=== PATIENT | female | born 1955 | race Asian ===

== ENCOUNTER 2016-09-10 14:05 | Emergency (ER) | payer OTHER ==
[2016-09-10 14:28] VITALS: BP 154/110; PULSE 94; TEMP 98; BMI 31.2
--- NOTE | 2016-09-10 14:38 | PDOC ---
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 She than cleansed it with water. Pt. is up-to-date with hepatitis b vaccines and tetanus. Patient reported this immediately to her pipe supervisor and started to fill out report. Pt. refusing PEP presently. 09/10/16 14:58 09/10/16 15:20 09/10/16 18:18 09/10/16 18:18 09/10/16 18:52 09/10/16 19:29 Severity: mild Exposed Location: Left: Finger(s) (index ) Assessing Significant Risk PEP: Yes Percutaneous (left index finger distal palmar aspect'), Yes Source patient is potentially HIV infected Past History - Past Medical History Allergies/Adverse Reactions: Allergies clarithromycin [From Biaxin] Allergy (Intermediate, Verified 09/10/16 14:28) Swelling erythromycin base [Erythromycin Base] Allergy (Intermediate, Verified 09/10/16 14:28) Rash Penicillins Allergy (Intermediate, Verified 09/10/16 14:28) Difficulty Breathing SHOCK Tetracyclines Allergy (Intermediate, Verified 09/10/16 14:28) Difficulty Breathing Sulfa (Sulfonamide Antibiotics) Allergy (Mild, Verified 09/10/16 14:28) Hives Home Medications: Ambulatory Orders Dexlansoprazole [Dexilant -] 60 mg PO DAILY 02/01/13 Valsartan [Diovan] 80 mg PO DAILY 02/01/13 Atorvastatin Ca [Lipitor] 20 mg NR DAILY 05/17/13 Metformin Xr [Glucophage Xr -] 500 mg PO DAILY 05/17/13 Sitagliptin Phosphate [Januvia] 50 mg PO DAILY 06/11/14 General: Yes: diabetes, high cholesterol, hypertension Surgical History: Yes: Appendectomy, - Social History Smoking Status: Never smoked General Medical PMHX - Other General PMHX Arthritis: No Review of Systems - Review of Systems Able to Perform ROS?: Yes Constitutional: No: Symptoms Reported HEENTM: No: Symptoms Reported Respiratory: No: Symptoms reported Cardiac (ROS): No: Symptoms Reported ABD/GI: No: Symptoms Reported : No: Symptoms Reported Musculoskeletal: No: Symptoms Reported Integumentary: Yes: Other (puncture wound noted left index finger distal palmar aspect) *Physical Exam - Vital Signs Last Vital Signs Temp Pulse Resp BP Pulse Ox 98.0 F 94 H 20 154/110 99 09/10/16 14:26 09/10/16 14:26 09/10/16 14:09/10/16 14:09/10/16 14:26 - Physical Exam General Appearance: Yes: Appropriately Dressed Respiratory/Chest: positive: Lungs Clear, Normal Breath Sounds Cardiovascular: positive: Regular Rhythm, Regular Rate, S1, S2 Integumentary: positive: Other (puncture wound needlepoint size left distal palmar aspect of index finger ) Neurologic: positive: Alert, Normal Response, Respond to painful stimul, Responsive Post Exposure - ED Protocol - Exposure Treatment Washing/Decontamination: Soap/Water Source Patient HIV Status:: Unknown Is PEP indicated?: Yes Prophylaxis for HIV discussed?: Yes Prophylaxis given?: No Prophylaxis refused?: Yes Drug(s) Information Sheets given:: No Baseline bloods drawn prophylaxis:(use *Exposure-Hosp Emp): Yes - Referrals Employee Referred to Employee Health:: Yes Employee Referred to Infectious Disease Specialist:: iveth Procedures - Consent Consent obtained: From Patient - Additional Procedures Progress: 09/10/16 19:52 She washed left index finger with chlorhexidine and warm water, dried bandaid applied 09/10/16 19:54 Medical Decision Making - Medical Decision Making 09/10/16 15:21 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 Patient reports that her finger bleed immediately and she squeezed it to bleed more. She than cleansed it with water. Pt. is up-to-date with hepatitis b vaccines and tetanus. Patient reported this immediately to her pipe supervisor and started to fill out report. Needlestick injury left index finger PLAN: post exposure labs drawn Dr. Flora Jameson source individual's PCP she will order source individual post exposure labs Told Dr. Jameson that nurse Pt. does not want to take PEP if source individual is HIV +, Dr. Jameson recommended that pt. nurse speak to Dr. Paige if needed Will have pt. follow with employee health and Dr. Kraft Pt. to follow up with PCP regarding elevated uric acid and elevated triglycerides Explained to pt that taken PEP within 3 hours of exposure lower risk of conversion for HIV 09/10/16 15:37 09/10/16 18:19 Laboratory Tests 09/10/16 09/10/16 09/10/16 14:52 14:52 14:52 WBC 7.0 D RBC 4.42 Hgb 13.1 Hct 39.3 MCV 89.0 MCHC 33.4 RDW 13.8 Plt Count 216 MPV 7.9 Neutrophils % 61.7 Lymphocytes % 28.1 Monocytes % 7.0 Eosinophils % 2.5 Basophils % 0.7 Sodium 141 Potassium 4.0 Chloride 104 Carbon Dioxide 30 Anion Gap 7 L BUN 16 D Creatinine 0.8 Creat Clearance w eGFR > 60 Random Glucose 107 H Uric Acid 7.5 H D Calcium 9.4 Phosphorus 3.3 Total Bilirubin 0.4 GGT 53 AST 34 D ALT 53 Alkaline Phosphatase 80 LD Total 227 Total Protein 7.7 Albumin 4.1 Triglycerides 231 H D Cholesterol 182 HIV 1&2 Antibody Screen Negative HIV P24 Antigen Negative waiting for source individual labs HIV 1 & 2 antibody screen 4th generation negative ,HIV P24 antigen negative 09/10/16 18:20 09/10/16 19:29 09/10/16 19:44 09/10/16 19:54 09/10/16 19:55 *DC/Admit/Observation/Transfer Diagnosis at time of Disposition: Employee exposure to blood - Discharge Dispostion Disposition: HOME Condition at time of disposition: Stable - Referrals Referrals: Steven Mercado MD [Primary Care Provider] - Shaquille Kraft MD [Staff Physician] - - Patient Instructions Additional Instructions: Follow up occupational health as soon as possible Follow up with Dr. Kraft as soon as possible Follow-up with your primary care provider in regards to your elevated triglycerides and uric acid Patient voiced understanding of discharge instructions and all questions were answered - Post Discharge Activity Work/School Note: Back to Work
[2016-09-10 15:22] LABS: BASOPHIL 0.7 % (0-2.0); EOSINOPHIL 2.5 % (0-4.5); MCH 29.7 pg (25.7-33.7); MCHC 33.4 g/dl (32.0-36.0); MEAN PLT VOLUME 7.9 fl (7.5-11.1); NEUTROPHILS 61.7 % (42.8-82.8); PLATELET COUNT 216 K/MM3 (134-434); RDW 13.8 % (11.6-15.6)
[2016-09-10 15:35] LABS: ALBUMIN 4.1 g/dl (3.4-5.0); ALK PHOS 80 U/L (45-117); ANION GAP 7 (8-16); BILIRUBIN,TOTAL 0.4 mg/dL (0.2-1.0); CALCIUM 9.4 mg/dL (8.5-10.1); CHOLESTEROL 182 mg/dL (50-200); CO2 30 mmol/L (21-32); COCKROFT - GAULT 86.7425; CREATININE 0.8 mg/dL (0.55-1.02); GLUCOSE,RANDOM 107 mg/dL (74-106); LDH 227 U/L (84-246); PHOSPHOROUS 3.3 mg/dL (2.5-4.9); SGOT/AST 34 U/L (15-37); SGPT/ALT 53 U/L (12-78); TOT PROT 7.7 g/dl (6.4-8.2); URIC ACID 7.5 mg/dL (2.6-7.2)
[2016-09-10 15:58] LABS: HIV 1 & 2 AB NEGATIVE; HIV 1 AGp24 NEGATIVE
[2016-09-12 08:07] LABS: HEP B SURFACE AB Reactive (.)
== END 2016-09-10 21:00 | disposition home or self-care (01) ==
LOC: JERFT 14:05
DX: S61.231A Puncture wound without foreign body of left index finger without damage to nail, initial encounter (principal); W46.1XXA Contact with contaminated hypodermic needle, initial encounter; Y93.F9 Activity, other caregiving; Y92.230 Patient room in hospital as the place of occurrence of the external cause; Y99.0 Civilian activity done for income or pay
CPT/HCPCS: 36415; 80053; 82465; 82977; 83615; 84100; 84478; 84550; 85025; 86704; 86706; 86803; 87340; 87389; 99282-25

== ENCOUNTER 2018-04-07 05:26 | Day surgery (SDC) | payer OTHER ==
[2018-04-06 11:08] VITALS: BMI 31.2
[2018-04-07] MEDS ORDERED: LIDOCAINE HCL/PF 2% SDV 5ML VIAL ONE (13:03)
[2018-04-07] MEDS ORDERED: PROPOFOL 20 ML ONE (13:04)
[2018-04-07] MEDS ORDERED: MIDAZOLAM HCL 2 MG/2 ML SINGLE DOSE VIAL ONE (13:04)
[2018-04-07] MEDS ORDERED: SCOPOLAMINE HYDROBROMIDE 1 PATCH PATCH.TD72 ONE (13:29)
[2018-04-07] MEDS ORDERED: CLINDAMYCIN PHOSPHATE 600 MG/4 ML VIAL ONE (13:48)
[2018-04-07] MEDS ORDERED: CLINDAMYCIN 600 MG PREMIX BAG IVPB ONE (13:48)
[2018-04-07] MEDS ORDERED: LIDOCAINE HCL 1%, 10 MG/ML (50 mL VIAL) IJ ONE (14:05)
[2018-04-07] MEDS ORDERED: KETOROLAC TROMETHAMINE 30 MG/1 ML VIAL ONE (14:55)
[2018-04-07] MEDS ORDERED: ONDANSETRON 4 MG/2 ML VIAL IVPUSH PRN (15:35)
[2018-04-07] MEDS ORDERED: oxyCODONE HCL 5 MG TABLET PO PRN (15:35)
--- NOTE | 2018-04-07 15:35 | HP ---
History & Physical Update - History History: No Change - Physical Physical: No Change - Assessment Assessment: No Change - Plan Plan: No Change
[2018-04-07] MEDS ORDERED: ACETAMINOPHEN 1000 MG/100 ML VIAL (NON FORMULARY) IVPB PRN (15:36)
[2018-04-07] MEDS ORDERED: ACETAMINOPHEN INJECTION 100 ML IVPB ONE (15:44)
[2018-04-07] MEDS ORDERED: LACTATED RINGERS SOLUTION 1,000 ML IV SCH (15:45)
[2018-04-07 17:54] VITALS: BP 117/69; PULSE 66; TEMP 97.7
--- NOTE | 2018-04-07 18:14 | OP ---
DATE OF OPERATION: 04/07/2018 PREOPERATIVE DIAGNOSIS: Right breast cancer. POSTOPERATIVE DIAGNOSIS: Right breast cancer. PROCEDURE: Right breast lumpectomy with primary reconstruction and sentinel lymph node biopsy as well as ultrasound-guided wire localized excision of lymph node. SURGEON: Padma Plata MD ANESTHESIA: General. ESTIMATED BLOOD LOSS: Minimal. COMPLICATIONS: None. DISPOSITION: Stable at the end of the procedure. INDICATIONS: The patient presented with a palpable mass in the upper right breast in the 12 o'clock location, 4-6 cm from the nipple, measuring approximately 3.5 cm. She had a suspicious mammogram and ultrasound. She underwent an ultrasound-guided needle biopsy, which shows the ER-ND positive invasive duct carcinoma. On ultrasound she also had a lymph node in the right axilla with a thickened cortex, but had a hyperechoic center and had no palpable clinical lymph nodes. Therefore, I elected to remove this lymph node at the time of the lumpectomy. She had a preoperative bone scan and CAT scan of the chest, abdomen, and pelvis that essentially noted no metastatic disease. There were some bilateral pulmonary nodules, which were thought to be likely benign. She would have a short-term follow up of these in 6 months. PROCEDURE IN DETAIL: The patient was brought to [facility] in [place] and was first taken to breast imaging where a wire was used to localize the right axillary lymph node that was thought to be suspicious under ultrasound guidance by Dr. Juarez, the radiologist. She was then brought to Nuclear Medicine where I injected technetium sulfur colloid as an intradermal injection in the right 12 o'clock subareolar location. She was then brought to the operating room after induction of general anesthesia and IV antibiotics. The right breast and axilla were prepped. Then 2.5 mL of methylene blue dilated with 2.5 mL of injectable saline were then injected by me into the right subareolar plexus and the breast was massaged for 5 minutes. The right breast and axilla were then prepped and draped in the usual sterile fashion. A 4-cm incision was made in the right axilla and carried down to the clavipectoral fascia. I followed the wire through to the lymph node that was pointed by the radiologist. It turned out to be the very first sentinel lymph node that was blue and hot. This was removed as a right axillary sentinel node number 1, blue and hot. There was another second radioactive lymph node that was sent as right axillary sentinel node number 2, hot, not blue, and a third sentinel node, which was hot and blue. There was no other radioactivity, blue dye, or pathological lymph nodes in the right axilla. Therefore, once hemostasis was assured, the right breast lumpectomy was performed. An ellipse of skin was taken overlying the palpable mass that was at the right breast 12 o'clock location, 4 cm from the nipple. Superior, inferomedial, and lateral flaps were raised and an en bloc lumpectomy was performed. Tagged with a long stitch lateral and short superior. Grossly I felt that it was close superiorly, medially, and inferiorly; therefore, I took additional margins medially. A new medial margin with a stitch at the old margin and a new superior margin with a stitch at the old margin and a new posterior margin with a stitch at the old margin. There was no other palpable abnormality within the lumpectomy. There was a wide defect left from this rather large lumpectomy. Therefore, the superior, medial, and lateral flaps were raised and a tissue transfer procedure was performed. The parenchyma was closed in 2 layers with interrupted 2-0 Vicryl. The skin was then approximated with interrupted 3-0 Vicryl and running 4-0 Prolene. A sterile dressing with Tegaderm was applied. The axillary incision was also then closed in a routine fashion of interrupted 3-0 Vicryl and running 4-0 Prolene. Sterile dressing with Tegaderm was applied. She tolerated the procedure well, was extubated on the operating room table, and taken to the recovery room in good condition. Kye [id number]
--- NOTE | 2018-04-09 17:32 | PATH ---
Surgical Pathology Report Patient Name: SANTIAGO MUNOZ [facility]. Rec. #: [id number] /Age/Gender: 1955 (Age: 63) / F Account: [id number] Location: [facility] SURGICAL Taken: 04/07/2018 Received: 04/08/2018 Reported: 04/09/2018 Physicians: Padma Plata M.D. Specimen(s) Received A: RIGHT AXILLARY SENTINEL LYMPH NODE #1 B: RIGHT AXILLARY SENTINEL LYMPH NODE #2 C: RIGHT AXILLARY SENTINEL LYMPH NODE #3 D: RIGHT BREAST MASS E: RIGHT BREAST MEDIAL MARGIN F: RIGHT BREAST SUPERIOR MARGIN G: RIGHT BREAST POSTERIOR MARGIN Clinical History Right breast cancer Final Diagnosis A. RIGHT AXILLARY SENTINEL LYMPH NODE #1, EXCISION: ONE LYMPH NODE, NEGATIVE FOR METASTATIC CARCINOMA (0/1). B. RIGHT AXILLARY SENTINEL LYMPH NODE #2, EXCISION: BENIGN FIBROADIPOSE AND BREAST TISSUE NEGATIVE FOR CARCINOMA. C. RIGHT AXILLARY SENTINEL LYMPH NODE #3, EXCISION: TWO LYMPH NODES, NEGATIVE FOR METASTATIC CARCINOMA (0/2). D. RIGHT BREAST AND MASS, LUMPECTOMY: INVASIVE DUCTAL CARCINOMA, POORLY DIFFERENTIATED (TUBULE SCORE: 3/3, NUCLEAR GRADE: 3/3, MITOTIC SCORE: 3/3, TOTAL SCORE 9/9, JASMIN GRADE 3), WITH MICROPAPILLARY FEATURES, MEASURING 4.4 CM IN GREATEST DIMENSION, GROSSLY. DUCTAL CARCINOMA IN SITU (DCIS) PRESENT, HIGH NUCLEAR GRADE, WITH NECROSIS AND ASSOCIATED CALCIFICATIONS. SURGICAL MARGINS ARE UNINVOLVED BY CARCINOMA. INVASIVE CARCINOMA IS AT LESS THAN 1 MM FROM INFERIOR, POSTERIOR, AND MEDIAL MARGIN. DCIS IS AT LESS THAN 1 MM FROM INFERIOR, POSTERIOR, AND MEDIAL MARGIN. SEE SPECIMEN E TO G FOR FINAL MARGINS. LYMPHOVASCULAR INVASION NOT IDENTIFIED. REACTIVE CHNAGES AT PRIOR BIOPSY SITE IDENTIFIED. PATHOLOGIC STAGE (pTMN): pT2 pN0 SEE INVASIVE CARCINOMA CASE SUMMARY BELOW. E. RIGHT BREAST MEDIAL MARGIN, EXCISION: BENIGN BREAST TISSUE. NEGATIVE FOR CARCINOMA. F. RIGHT BREAST SUPERIOR MARGIN, EXCISION: BENIGN BREAST TISSUE. NEGATIVE FOR CARCINOMA. G. RIGHT BREAST POSTERIOR MARGIN, EXCISION: BENIGN BREAST TISSUE. NEGATIVE FOR CARCINOMA. Comments Breast Invasive Carcinoma: Surgical Pathology Case Summary (Based on AJCC TNM 8 th edition) Procedure _x_ Excision (less than total mastectomy) Specimen Laterality _x_ Right Tumor Size _x_ Greatest dimension of largest invasive focus >1 mm (specify exact measurement) (millimeters): 44 mm Histologic Type _x_ Invasive carcinoma with micropapillary features Histologic Grade ([place] Histologic Score) Glandular (Acinar)/Tubular Differentiation _x_ Score 3 (<10% of tumor area forming glandular/tubular structures) Nuclear Pleomorphism _x_ Score 3 Mitotic Rate _x_ Score 3 Overall Grade _x_ Grade 3 (scores of 8 or 9) Tumor Focality _x_ Single focus of invasive carcinoma Ductal Carcinoma In Situ (DCIS) _x_ DCIS is present in specimen _x_ Positive for EIC Margins Invasive Carcinoma Margins _x_ Uninvolved by invasive carcinoma Distance from closest margin (millimeters): < 1 mm Closest margins: inferior, posterior, and medial margin. Also see specimen E and G for final medial and posterior margins. DCIS Margins _x_ Uninvolved by DCIS Distance from closest margin (millimeters): <1 mm Closest margins: inferior, posterior, and medial margin. Also see specimen E and G for final medial and posterior margins. Regional Lymph Nodes Number of Lymph Nodes with Macrometastases (>2 mm): 0 Number of Lymph Nodes with Micrometastases (>0.2 mm to 2 mm and/or >200 cells): 0 Number of Lymph Nodes with Isolated Tumor Cells (=0.2 mm and =200 cells): 0 Number of Lymph Nodes Examined: 3 Number of [place] Nodes Examined: 3 Treatment Effect _x_ No known presurgical therapy Lymphovascular Invasion _x_ Not identified Pathologic Stage Classification (pTNM, AJCC 8th Edition) Primary Tumor (Invasive Carcinoma) (pT) _x_ pT2: Tumor >20 mm but =50 mm in greatest dimension Regional Lymph Nodes (pN) Modifier (required only if applicable) _x_ (sn): [place] node(s) evaluated. Category (pN) _x_ pN0: No regional lymph node metastasis identified or ITCs only Biomarker Studies Results of ER and PA studies performed on prior biopsy ([id number]) at are as follows: ER (clone [id number] mouse monoclonal antibody by [employer]): ~99 % nuclear staining with strong intensity (Positive). PA (clone16 mouse monoclonal antibody by [employer]): ~10% nuclear staining with weak intensity (Low positive). Results of Her2 (IHC) & Ki-67 studies performed on prior biopsy ([id number]) at [place], [place] ([id number]) are as follows: Her2 IHC (EP3 from [employer], formerly known as [id number], using [employer] Polymer Refine detection kit): 3+ (positive) Ki67: ~40% (high proliferative index) Electronically Signed Wisam Orellana M.D. Gross Description A. Received in formalin labeled "right axillary sentinel lymph node #1," is a 1.2 x 0.8 x 0.5 cm tiwari blue lymph node with attached fat. The specimen is bisected and entirely submitted in one cassette. B. Received in formalin labeled "right axillary sentinel lymph node #2," is a 3.0 x 2.2 x 0.6 cm portion of fibroadipose tissue, possibly containing a lymph node. The specimen is bisected and entirely submitted in one cassette. C. Received in formalin labeled "right axillary sentinel lymph node #3," is a 2.0 x 1.1 x 0.3 cm portion of fibroadipose tissue, possibly containing a lymph node. The specimen is submitted in toto in one cassette. D. Received in formalin, labeled "right breast lumpectomy," is a 6.5 x 5.5 x 3.8 cm. tiwari-yellow, irregular, portion of fibroadipose tissue. There is no needle localization wire present. There is a short suture marking the superior aspect and a long suture marking the lateral aspect, per the surgeon. The anterior surface displays a 4.0 x 1.0 cm tiwari-brown, elliptical, unremarkable portion of skin. The specimen is inked as follows: Superior blue; inferior green; lateral red; medial yellow; posterior black. The specimen is serially sectioned from lateral to medial. Sectioning reveals a 4.4 x 3.3 x 2.3 cm tiwari, indurated mass abutting the medial and posterior margins. The mass is 0.2 cm from the inferior margin and 0.3 cm from the superior margin. Production Technologist sections are submitted in 11 cassettes as follows: 1-2-one bisected section of mass (cassette #1 with inferior margin); 3-4-mass with medial margin; 5-6-mass with posterior margin; 7-8-mass with superior margin; 9-additional inferior margin; 10-skin; 11-lateral margin. Total formalin fixation time: Approximately 24 hours E. Received in formalin labeled "right breast new medial margin," is a 4.8 x 2.2 x 0.9 cm portion of fibroadipose tissue with a suture marking the old margin, per the surgeon. The new margin is inked black and the specimen is serially sectioned. The specimen is entirely and sequentially submitted in 7 cassettes. F. Received in formalin labeled "right breast new superior margin," is a 5.0 x 3.0 x 1.2 cm portion of fibroadipose tissue with a suture marking the old margin, per the surgeon. The new margin is inked black and the specimen is serially sectioned. The specimen is entirely and sequentially submitted in 7 cassettes. G. Received in formalin labeled "right breast new posterior margin," is a 4.2 x 3.0 x 1.8 cm portion of fibroadipose tissue with a suture marking the old margin, per the surgeon. The new margin is inked black and the specimen is serially sectioned. The specimen is entirely and sequentially submitted in 7 casettes. 04/08/2018 [facility]04/08/2018
== END 2018-04-07 17:56 | disposition home or self-care (01) ==
LOC: JASU-SURG 05:26
PROVIDERS: ATTEND Surgery
PROC: 0HBT0ZZ Excision of Right Breast, Open Approach (ICD-10-PCS; principal; 2018-04-07 12:00)
PROC: 0JX60ZB Transfer Chest Subcutaneous Tissue and Fascia with Skin and Subcutaneous Tissue, Open Approach (ICD-10-PCS; 2018-04-07 12:00)
DX: C50.811 Malignant neoplasm of overlapping sites of right female breast (principal)
CPT/HCPCS: 19281; 82962; 88305-TC; 88307-TC; 94760; A9541; J0131

== ENCOUNTER 2018-07-14 08:19 | Day surgery (SDC) | payer OTHER ==
[2018-07-13 18:09] VITALS: BMI 30.4
[2018-07-14 08:40] LABS: BASO % 1.2 % (0-2.0); EOS % 6.1 % (0-4.5); HEMATOCRIT 37.6 % (32.4-45.2); HEMOGLOBIN 13.1 GM/dL (10.7-15.3); LYMPH % 32.8 % (8-40); MCH 31.8 pg (25.7-33.7); MCHC 34.7 g/dl (32.0-36.0); MEAN CELL VOLUME 91.6 fl (80-96); MEAN PLT VOLUME 7.8 fl (7.5-11.1); NEUT % 49.9 % (42.8-82.8); PLATELET COUNT 230 K/MM3 (134-434); RDW 14.4 % (11.6-15.6); WHITE BLOOD COUNT 6.5 K/mm3 (4.0-10.0)
[2018-07-14 08:53] LABS: INR 1.18 (0.83-1.09)
[2018-07-14 09:12] LABS: ALBUMIN 3.6 g/dl (3.4-5.0); ALK PHOS 85 U/L (45-117); ANION GAP 4 MMOL/L (8-16); BILIRUBIN,TOTAL 0.2 mg/dL (0.2-1); BLOOD UREA NITROGEN 17 mg/dL (7-18); CALCIUM 9.3 mg/dL (8.5-10.1); CHLORIDE 104 mmol/L (98-107); CO2 29 mmol/L (21-32); CREATININE 0.9 mg/dL (0.55-1.3); GLUCOSE,RANDOM 100 mg/dL (74-106); MAGNESIUM 2.1 mg/dL (1.8-2.4); POTASSIUM 4.6 mmol/L (3.5-5.1); PREALBUMIN 25.8 mg/dl (20-40); SGOT/AST 31 U/L (15-37); SGPT/ALT 50 U/L (13-61); SODIUM 137 mmol/L (136-145); TOT PROT 7.6 g/dl (6.4-8.2)
[2018-07-14 14:32] VITALS: TEMP 98
[2018-07-14 14:34] VITALS: BP 110/74; PULSE 76
== END 2018-07-14 14:15 | disposition home or self-care (01) ==
LOC: JRADIR 08:19
PROVIDERS: ATTEND Internal Medicine Hematology & Oncology
PROC: 02HV33Z Insertion of Infusion Device into Superior Vena Cava, Percutaneous Approach (ICD-10-PCS; principal; 2018-07-14)
PROC: B518ZZA Fluoroscopy of Superior Vena Cava, Guidance (ICD-10-PCS; 2018-07-14)
DX: C50.919 Malignant neoplasm of unspecified site of unspecified female breast (principal)
CPT/HCPCS: 36561; C1751; 36415; 77001-TC-FY; 80053; 83735; 84134; 85025; 85610; C1788

== ENCOUNTER 2018-07-15 06:42 | Day surgery (SDC) | payer OTHER ==
[2018-07-15] MEDS ORDERED: SODIUM CHLORIDE 250 ML IV ONE ×2 (09:00→11:30)
[2018-07-15 09:46] LABS: BASO % 0.7 % (0-2.0); EOS % 5.9 % (0-4.5); HEMATOCRIT 35.1 % (32.4-45.2); HEMOGLOBIN 12.2 GM/dL (10.7-15.3); LYMPH % 20.9 % (8-40); MCH 31.6 pg (25.7-33.7); MCHC 34.6 g/dl (32.0-36.0); MEAN CELL VOLUME 91.4 fl (80-96); MEAN PLT VOLUME 7.9 fl (7.5-11.1); MONO % 6.7 % (3.8-10.2); NEUT % 65.8 % (42.8-82.8); PLATELET COUNT 187 K/MM3 (134-434); RBC 3.84 M/mm3 (3.60-5.2); WHITE BLOOD COUNT 5.5 K/mm3 (4.0-10.0)
[2018-07-15] MEDS ORDERED: RANITIDINE IVPB ONE (10:00)
[2018-07-15] MEDS ORDERED: [UNRECOGNIZED DRUG - OTHER] IVPB ONE (10:00)
[2018-07-15] MEDS ORDERED: FOSAPREPITANT DIMEGLUMINE 150 MG in SODIUM CHLORIDE 150 ML IVPB ONE (10:00)
[2018-07-15] MEDS ORDERED: DEXAMETHASONE SODIUM PHOSPHATE IVPB ONE (10:00)
[2018-07-15] MEDS ORDERED: PALONOSETRON HCL 0.25 MG/5 ML VIAL IVPUSH ONE (10:00)
[2018-07-15 10:17] LABS: ALBUMIN 3.3 g/dl (3.4-5.0); BILIRUBIN,DIRECT 0.1 mg/dL (0.0-0.2); BILIRUBIN,TOTAL 0.4 mg/dL (0.2-1); MAGNESIUM 1.8 mg/dL (1.8-2.4); TOT PROT 7.1 g/dl (6.4-8.2)
[2018-07-15 10:20] LABS: ALBUMIN 3.2 g/dl (3.4-5.0); ALK PHOS 82 U/L (45-117); ANION GAP 5 MMOL/L (8-16); BILIRUBIN,TOTAL 0.3 mg/dL (0.2-1); BLOOD UREA NITROGEN 14 mg/dL (7-18); CALCIUM 8.6 mg/dL (8.5-10.1); CHLORIDE 106 mmol/L (98-107); CO2 29 mmol/L (21-32); CREATININE 0.8 mg/dL (0.55-1.3); GLUCOSE,RANDOM 152 mg/dL (74-106); POTASSIUM 4.1 mmol/L (3.5-5.1); SGOT/AST 25 U/L (15-37); SGPT/ALT 48 U/L (13-61); SODIUM 139 mmol/L (136-145)
[2018-07-15] MEDS ORDERED: DOXORUBICIN HCL 104 MG in SODIUM CHLORIDE 100 ML IV ONE (10:30)
[2018-07-15] MEDS ORDERED: CYCLOPHOSPHAMIDE INJECTION 1,040 MG in SODIUM CHLORIDE 250 ML IVPB ONE (11:00)
[2018-07-15] MEDS ORDERED: D5-NS + 20 MEQ KCL - 20 MEQ/1,000 ML INFUS.BAG IV SCH (11:00)
[2018-07-15] MEDS ORDERED: POTASSIUM CHLORIDE IVPB ONE (12:00)
[2018-07-15] MEDS ORDERED: DEXTROSE 5% IVPB ONE (12:00)
[2018-07-15] MEDS ORDERED: NORMAL SALINE IVPB ONE (12:00)
[2018-07-15 15:52] VITALS: TEMP 97.8
[2018-07-15] MEDS ORDERED: PORTA CATH FLUSH 10 ML IVPUSH ONE (15:52)
[2018-07-15 16:00] VITALS: BP 115/67; PULSE 83
== END 2018-07-15 15:30 | disposition home or self-care (01) ==
LOC: JONCCHEMO 06:42 → J7W 10:36 → JONCCHEMO 15:30
PROVIDERS: ATTEND Internal Medicine Hematology & Oncology
PROC: 3E04305 Introduction of Other Antineoplastic into Central Vein, Percutaneous Approach (ICD-10-PCS; principal; 2018-07-15)
PROC: 3E043GC Introduction of Other Therapeutic Substance into Central Vein, Percutaneous Approach (ICD-10-PCS; 2018-07-15)
PROC: 3E0437Z Introduction of Electrolytic and Water Balance Substance into Central Vein, Percutaneous Approach (ICD-10-PCS; 2018-07-15)
DX: Z51.11 Encounter for antineoplastic chemotherapy (principal); C50.411 Malignant neoplasm of upper-outer quadrant of right female breast; Z17.0 Estrogen receptor positive status [ER+]
CPT/HCPCS: 36415; 80053; 80076; 83735; 85025; 96361; 96367; 96375; 96413; 96417; J1453; J2469; J9070

== ENCOUNTER 2018-07-16 06:24 | Day surgery (SDC) | payer OTHER ==
[2018-07-16] MEDS ORDERED: POTASSIUM CHLORIDE 20 MEQ in DEXTROSE 5%-NORMAL SALINE 500 ML IVPB ONE (10:00)
[2018-07-16] MEDS ORDERED: PEGFILGRASTIM 6 MG/0.6 ML DISP.SYRIN SQ ONE (10:00)
[2018-07-16] MEDS ORDERED: RANITIDINE IVPB ONE (13:30)
[2018-07-16] MEDS ORDERED: SODIUM CHLORIDE IVPB ONE (13:30)
[2018-07-16] MEDS ORDERED: DEXAMETHASONE IVPB ONE (13:30)
[2018-07-16 18:14] VITALS: TEMP 98.3
[2018-07-16] MEDS ORDERED: PORTA CATH FLUSH 10 ML IVPUSH ONE (18:14)
[2018-07-16 18:17] VITALS: BP 121/77; PULSE 63
--- NOTE | 2018-07-17 17:07 | EKG ---
Test Reason : Blood Pressure : / mmHG Vent. Rate : 069 BPM Atrial Rate : 069 BPM P-R Int : 162 ms QRS Dur : 080 ms QT Int : 392 ms P-R-T Axes : 057 002 030 degrees QTc Int : 420 ms NORMAL SINUS RHYTHM NORMAL ECG WHEN COMPARED WITH ECG OF 31-MAR-2018 10:27, NO SIGNIFICANT CHANGE WAS FOUND Confirmed by CHARLI CARPIO MD ([id number]) on 07/17/2018 5:07:24 PM Referred By: Confirmed By:CHARLI CARPIO MD
== END 2018-07-16 16:45 | disposition home or self-care (01) ==
LOC: JONCCHEMO 06:24 → J7W 12:39 → JONCCHEMO 16:45
PROVIDERS: ATTEND Internal Medicine Hematology & Oncology
PROC: 3E0437Z Introduction of Electrolytic and Water Balance Substance into Central Vein, Percutaneous Approach (ICD-10-PCS; principal; 2018-07-16)
PROC: 3E043GC Introduction of Other Therapeutic Substance into Central Vein, Percutaneous Approach (ICD-10-PCS; 2018-07-16)
DX: C50.411 Malignant neoplasm of upper-outer quadrant of right female breast (principal); Z17.0 Estrogen receptor positive status [ER+]; Z76.89 Persons encountering health services in other specified circumstances
CPT/HCPCS: 93005; 93010; 96361; 96365; 96367; 96372; 96375; J2505

== ENCOUNTER 2018-07-29 07:35 | Day surgery (SDC) | payer OTHER ==
[2018-07-29] MEDS ORDERED: SODIUM CHLORIDE 250 ML IV ONE ×2 (09:30→11:30)
[2018-07-29] MEDS ORDERED: RANITIDINE IVPB ONE (10:00)
[2018-07-29] MEDS ORDERED: DEXAMETHASONE SODIUM PHOSPHATE IVPB ONE (10:00)
[2018-07-29] MEDS ORDERED: FOSAPREPITANT DIMEGLUMINE 150 MG in SODIUM CHLORIDE 150 ML IVPB ONE (10:00)
[2018-07-29] MEDS ORDERED: [UNRECOGNIZED DRUG - OTHER] IVPB ONE (10:00)
[2018-07-29] MEDS ORDERED: PALONOSETRON HCL 0.25 MG/5 ML VIAL IVPUSH ONE (10:00)
[2018-07-29 10:28] LABS: BASO % 0.8 % (0-2.0); EOS % 1.3 % (0-4.5); HEMATOCRIT 31.9 % (32.4-45.2); HEMOGLOBIN 10.9 GM/dL (10.7-15.3); LYMPH % 19.6 % (8-40); MCH 31.5 pg (25.7-33.7); MCHC 34.1 g/dl (32.0-36.0); MEAN CELL VOLUME 92.4 fl (80-96); MEAN PLT VOLUME 8.6 fl (7.5-11.1); MONO % 18.9 % (3.8-10.2); NEUT % 59.4 % (42.8-82.8); PLATELET COUNT 214 K/MM3 (134-434); RBC 3.45 M/mm3 (3.60-5.2); RDW 13.6 % (11.6-15.6)
[2018-07-29] MEDS ORDERED: DOXORUBICIN HCL 104 MG in SODIUM CHLORIDE 100 ML IV ONE (10:30)
[2018-07-29 10:51] LABS: ALBUMIN 3.6 g/dl (3.4-5.0); BILIRUBIN,DIRECT 0.1 mg/dL (0.0-0.2); BILIRUBIN,TOTAL 0.4 mg/dL (0.2-1); MAGNESIUM 1.9 mg/dL (1.8-2.4); TOT PROT 7.2 g/dl (6.4-8.2)
[2018-07-29 10:52] LABS: ALBUMIN 3.5 g/dl (3.4-5.0); ALK PHOS 101 U/L (45-117); ANION GAP 8 MMOL/L (8-16); BILIRUBIN,TOTAL 0.1 mg/dL (0.2-1); BLOOD UREA NITROGEN 9 mg/dL (7-18); CALCIUM 8.8 mg/dL (8.5-10.1); CHLORIDE 107 mmol/L (98-107); CO2 26 mmol/L (21-32); CREATININE 0.8 mg/dL (0.55-1.3); GLUCOSE,RANDOM 131 mg/dL (74-106); POTASSIUM 4.2 mmol/L (3.5-5.1); SGOT/AST 18 U/L (15-37); SGPT/ALT 32 U/L (13-61); SODIUM 141 mmol/L (136-145); TOT PROT 7.1 g/dl (6.4-8.2)
[2018-07-29] MEDS ORDERED: CYCLOPHOSPHAMIDE INJECTION 1,040 MG in SODIUM CHLORIDE 250 ML IVPB ONE (11:00)
[2018-07-29 12:12] LABS: ANISOCYTOSIS 1+; MACROCYTOSIS 1+; PLATELET ESTIMATE NORMAL
[2018-07-29 16:41] VITALS: TEMP 98.2
[2018-07-29] MEDS ORDERED: PORTA CATH FLUSH 10 ML IVPUSH ONE (16:59)
[2018-07-29 17:56] VITALS: BP 123/72; PULSE 82
== END 2018-07-29 16:45 | disposition home or self-care (01) ==
LOC: JONCCHEMO 07:35 → J7W 11:21 → JONCCHEMO 16:45
PROVIDERS: ATTEND Internal Medicine Hematology & Oncology
DX: Z51.11 Encounter for antineoplastic chemotherapy (principal); C50.411 Malignant neoplasm of upper-outer quadrant of right female breast; Z17.0 Estrogen receptor positive status [ER+]
CPT/HCPCS: 36415; 80053; 80076; 83735; 85025; 96361; 96367; 96375; 96413; 96417; J1453; J2469; J9070

== ENCOUNTER 2018-07-30 07:22 | Day surgery (SDC) | payer OTHER ==
[2018-07-30] MEDS ORDERED: PEGFILGRASTIM 6 MG/0.6 ML DISP.SYRIN SQ ONE (10:00)
[2018-07-30] MEDS ORDERED: DEXAMETHASONE SODIUM PHOSPHATE 8 MG, ONDANSETRON INJECTION 8 MG in SODIUM CHLORIDE 100 ML IVPB ONE (10:00)
[2018-07-30] MEDS ORDERED: POTASSIUM CHLORIDE 20 MEQ, MAGNESIUM SULFATE 1 GM in DEXTROSE 5%-NORMAL SALINE 1,000 ML IVPB ONE (10:00)
[2018-07-30] MEDS ORDERED: PORTA CATH FLUSH 10 ML IVPUSH ONE (18:43)
[2018-07-30 18:44] VITALS: BP 111/63; PULSE 77
[2018-07-30 18:45] VITALS: TEMP 98.2
== END 2018-07-30 18:45 | disposition home or self-care (01) ==
LOC: JONCCHEMO 07:22 → J7W 13:02 → JONCCHEMO 18:45
PROVIDERS: ATTEND Internal Medicine Hematology & Oncology
PROC: 3E013GC Introduction of Other Therapeutic Substance into Subcutaneous Tissue, Percutaneous Approach (ICD-10-PCS; principal; 2018-07-30)
PROC: 3E043GC Introduction of Other Therapeutic Substance into Central Vein, Percutaneous Approach (ICD-10-PCS; 2018-07-30)
DX: C50.411 Malignant neoplasm of upper-outer quadrant of right female breast (principal); Z17.0 Estrogen receptor positive status [ER+]; Z76.89 Persons encountering health services in other specified circumstances
CPT/HCPCS: 96365; 96366; 96367; 96372; 96375; 96415; 96417; J2505

== ENCOUNTER 2018-07-31 09:15 | Day surgery (SDC) | payer OTHER ==
[2018-07-31] MEDS ORDERED: DEXAMETHASONE SOD PHOSPHATE 10 MG/1 ML VIAL ONE (09:35)
[2018-07-31] MEDS ORDERED: ONDANSETRON 4 MG/2 ML VIAL ONE (09:36)
[2018-07-31] MEDS ORDERED: POTASSIUM CHLORIDE 20 MEQ, MAGNESIUM SULFATE 1 GM in DEXTROSE 5%-NORMAL SALINE 1,000 ML IVPB ONE (10:00)
[2018-07-31] MEDS ORDERED: DEXAMETHASONE SODIUM PHOSPHATE 8 MG, ONDANSETRON INJECTION 8 MG in SODIUM CHLORIDE 100 ML IVPB ONE (10:00)
[2018-07-31 16:19] VITALS: BP 118/67; PULSE 82; TEMP 98.2
[2018-07-31] MEDS ORDERED: PORTA CATH FLUSH 10 ML IVPUSH ONE (16:48)
== END 2018-07-31 15:30 | disposition home or self-care (01) ==
LOC: JONCNONCHE 09:15 → J7W 09:16 → JONCNONCHE 15:30
PROVIDERS: ATTEND Internal Medicine Hematology & Oncology
PROC: 3E043GC Introduction of Other Therapeutic Substance into Central Vein, Percutaneous Approach (ICD-10-PCS; principal; 2018-07-31)
DX: C50.411 Malignant neoplasm of upper-outer quadrant of right female breast (principal); Z17.0 Estrogen receptor positive status [ER+]; E86.0 Dehydration; Z76.89 Persons encountering health services in other specified circumstances
CPT/HCPCS: 96360; 96361; 96365; 96366; J1100; J2405

== ENCOUNTER 2018-08-03 07:59 | Day surgery (SDC) | payer OTHER ==
[2018-08-03 08:30] LABS: EOS % 1.1 % (0-4.5); HEMATOCRIT 29.3 % (32.4-45.2); LYMPH % 23.2 % (8-40); MCH 31.1 pg (25.7-33.7); MCHC 34.2 g/dl (32.0-36.0); MONO % 2.1 % (3.8-10.2); NEUT % 72.6 % (42.8-82.8); PLATELET COUNT 85 K/MM3 (134-434); RBC 3.22 M/mm3 (3.60-5.2); RDW 13.7 % (11.6-15.6)
[2018-08-03 09:05] LABS: ALBUMIN 3.4 g/dl (3.4-5.0); ALK PHOS 124 U/L (45-117); ANION GAP 8 MMOL/L (8-16); BILIRUBIN,TOTAL 0.6 mg/dL (0.2-1); BLOOD UREA NITROGEN 13 mg/dL (7-18); CALCIUM 8.3 mg/dL (8.5-10.1); CHLORIDE 106 mmol/L (98-107); CO2 26 mmol/L (21-32); CREATININE 0.7 mg/dL (0.55-1.3); GLUCOSE,RANDOM 122 mg/dL (74-106); MAGNESIUM 1.8 mg/dL (1.8-2.4); POTASSIUM 4.3 mmol/L (3.5-5.1); SGOT/AST 13 U/L (15-37); SGPT/ALT 24 U/L (13-61); SODIUM 140 mmol/L (136-145); TOT PROT 6.6 g/dl (6.4-8.2)
[2018-08-03 09:17] LABS: WHITE BLOOD COUNT 1.5 K/mm3 (4.0-10.0)
[2018-08-03 14:12] LABS: ANISOCYTOSIS 0; MACROCYTOSIS 0; PLATELET ESTIMATE DECREASED; TEAR DROP CELLS 1+
[2018-08-03] MEDS ORDERED: TBO-FILGRASTIM 480 MCG/0.8 ML DISP.SYRIN SQ ONE (14:45)
[2018-08-03 18:05] VITALS: BP 109/63; PULSE 63; TEMP 98.7
== END 2018-08-03 17:40 | disposition home or self-care (01) ==
LOC: JONCCHEMO 07:59 → JLAB 07:59 → EDSTATUS 09:54 → J7W 14:12 → JONCCHEMO 17:40
PROVIDERS: ATTEND Internal Medicine Hematology & Oncology
PROC: 3E013GC Introduction of Other Therapeutic Substance into Subcutaneous Tissue, Percutaneous Approach (ICD-10-PCS; principal; 2018-08-03)
DX: C50.411 Malignant neoplasm of upper-outer quadrant of right female breast (principal); Z17.0 Estrogen receptor positive status [ER+]; Z76.89 Persons encountering health services in other specified circumstances
CPT/HCPCS: 36415; 80053; 83735; 85025; 96372; J1447

== ENCOUNTER 2018-08-12 07:11 | Day surgery (SDC) | payer OTHER ==
[2018-08-12] MEDS ORDERED: SODIUM CHLORIDE 250 ML IV ONE ×2 (08:00→10:30)
[2018-08-12] MEDS ORDERED: DEXAMETHASONE SODIUM PHOSPHATE IVPB ONE (08:30)
[2018-08-12] MEDS ORDERED: RANITIDINE IVPB ONE (08:30)
[2018-08-12] MEDS ORDERED: PALONOSETRON HCL 0.25 MG/5 ML VIAL IVPUSH ONE (08:30)
[2018-08-12] MEDS ORDERED: [UNRECOGNIZED DRUG - OTHER] IVPB ONE (08:30)
[2018-08-12] MEDS ORDERED: FOSAPREPITANT DIMEGLUMINE 150 MG in SODIUM CHLORIDE 145 ML IVPB ONE (08:30)
[2018-08-12] MEDS ORDERED: DOXORUBICIN HCL 104 MG in SODIUM CHLORIDE 100 ML IV ONE (09:00)
[2018-08-12 09:38] LABS: BASO % 0.4 % (0-2.0); EOS % 0.2 % (0-4.5); HEMATOCRIT 25.4 % (32.4-45.2); HEMOGLOBIN 8.9 GM/dL (10.7-15.3); LYMPH % 11.6 % (8-40); MCH 31.9 pg (25.7-33.7); MCHC 34.9 g/dl (32.0-36.0); MEAN CELL VOLUME 91.3 fl (80-96); MEAN PLT VOLUME 8.2 fl (7.5-11.1); MONO % 21.8 % (3.8-10.2); PLATELET COUNT 182 K/MM3 (134-434); RBC 2.78 M/mm3 (3.60-5.2); RDW 13.5 % (11.6-15.6); WHITE BLOOD COUNT 4.7 K/mm3 (4.0-10.0)
[2018-08-12] MEDS ORDERED: CYCLOPHOSPHAMIDE INJECTION 1,040 MG in SODIUM CHLORIDE 250 ML IVPB ONE (10:00)
[2018-08-12 10:02] LABS: ALBUMIN 3.4 g/dl (3.4-5.0); ALK PHOS 85 U/L (45-117); ANION GAP 3 MMOL/L (8-16); BILIRUBIN,DIRECT 0.1 mg/dL (0.0-0.2); BILIRUBIN,TOTAL 0.2 mg/dL (0.2-1); BLOOD UREA NITROGEN 5 mg/dL (7-18); CALCIUM 8.8 mg/dL (8.5-10.1); CHLORIDE 106 mmol/L (98-107); CO2 30 mmol/L (21-32); CREATININE 0.7 mg/dL (0.55-1.3); GLUCOSE,RANDOM 112 mg/dL (74-106); MAGNESIUM 1.6 mg/dL (1.8-2.4); POTASSIUM 4.2 mmol/L (3.5-5.1); SGOT/AST 18 U/L (15-37); SGPT/ALT 25 U/L (13-61); SODIUM 139 mmol/L (136-145); TOT PROT 6.6 g/dl (6.4-8.2)
[2018-08-12] MEDS ORDERED: MAGNESIUM OXIDE 400 MG TABLET (FP) PO ONE (10:35)
[2018-08-12 11:53] LABS: PLATELET ESTIMATE NORMAL
[2018-08-12 17:18] VITALS: BP 128/79; PULSE 84
[2018-08-12 17:21] VITALS: TEMP 98
== END 2018-08-12 15:20 | disposition home or self-care (01) ==
LOC: JONCCHEMO 07:11 → J7W 10:24 → JONCCHEMO 15:20
PROVIDERS: ATTEND Internal Medicine Hematology & Oncology
DX: Z51.11 Encounter for antineoplastic chemotherapy (principal); C50.411 Malignant neoplasm of upper-outer quadrant of right female breast; Z17.0 Estrogen receptor positive status [ER+]
CPT/HCPCS: 36415; 80048; 80076; 83735; 85025; 96361; 96367; 96375; 96413; 96417; J1453; J2469; J9070

== ENCOUNTER 2018-08-13 07:07 | Day surgery (SDC) | payer OTHER ==
[2018-08-13] MEDS ORDERED: DEXAMETHASONE SODIUM PHOSPHATE 8 MG, ONDANSETRON INJECTION 8 MG in SODIUM CHLORIDE 100 ML IVPB ONE (09:00)
[2018-08-13] MEDS ORDERED: PEGFILGRASTIM 6 MG/0.6 ML DISP.SYRIN SQ ONE (09:00)
[2018-08-13] MEDS ORDERED: MAGNESIUM SULFATE IVPB ONE (09:30)
[2018-08-13] MEDS ORDERED: SODIUM CHLORIDE 0.45% IVPB ONE (09:30)
[2018-08-13] MEDS ORDERED: POTASSIUM CHLORIDE IVPB ONE (09:30)
--- NOTE | 2018-08-13 10:36 | HP ---
Admitting History and Physical - Admission Chief Complaint: Breast ca -s/p cycle 3 of dose dense adriamcin - cytoxan History Source: Patient, Medical Record - Smoking History Smoking history: Never smoked Have you smoked in the past 12 months: No - Alcohol/Substance Use Hx Alcohol Use: No Home Medications - Allergies Allergies/Adverse Reactions: Allergies Allergy/AdvReac Type Severity Reaction Status Date / Time clarithromycin [From Biaxin] Allergy Intermediate Swelling Verified 07/14/18 09: 24 erythromycin base Allergy Intermediate Rash Verified 07/14/18 09:24 [Erythromycin Base] Penicillins Allergy Intermediate Difficulty Verified 07/14/18 09:24 Breathing Tetracyclines Allergy Intermediate Difficulty Verified 07/14/18 09:24 Breathing Sulfa (Sulfonamide Allergy Mild Hives Verified 07/14/18 09:24 Antibiotics) - Home Medications Home Medications: Ambulatory Orders Atorvastatin Ca [Lipitor] 20 mg NR DAILY 05/17/13 Allopurinol [Zyloprim -] 100 mg PO DAILY 04/06/18 Levothyroxine [Synthroid -] 50 mcg PO DAILY 04/06/18 Sitagliptin Phos/Metformin HCl [Janumet 50-1,000 mg Tablet] 1 each PO DAILY 03/14 Acetaminophen W/ Codeine #3 [Tylenol # 3 -] 1 - 2 tab PO Q6H PRN #30 tablet MDD 8 pills 04/07/18 Losartan Potassium 100 mg PO DAILY 07/13/18 Pantoprazole Sodium [Protonix -] 20 mg PO DAILY 07/13/18 Review of Systems - Review of Systems Constitutional: reports: Loss of Appetite, Malaise, Weakness. denies: Fever, Lethargy, Night Sweats, Unintentional Wgt. Loss Eyes: denies: Blurred Vision, Double Vision, Photophobia HENT: denies: Difficult Swallowing, Epistaxis Neck: reports: Stiffness, Tenderness, Other (Fell with trauma to neck). denies : Swollen Glands Cardiovascular: reports: Shortness of Breath. denies: Chest Pain, Edema, Palpitations Respiratory: reports: SOB, SOB on Exertion Gastrointestinal: reports: Abdominal Pain, Diarrhea, Nausea. denies: Constipation, Dysphagia, Vomiting Genitourinary: denies: Burning, Dysuria Breasts: reports: Other (s/p lumpectomy/) Musculoskeletal: reports: Muscle Pain Integumentary: reports: Other (alopecia) Neurological: reports: Weakness, Other (fell- hit head) Endocrine: reports: No Symptoms Hematology/Lymphatic: reports: No Symptoms Psychiatric: reports: No Symptoms Physical Examination Constitutional: Yes: Moderate Distress Eyes: Yes: PERRL. No: Ptosis, Sclera Icterus HENT: Yes: Atraumatic, Normocephalic Neck: Yes: Decreased ROM, Tenderness. No: Lymphadenopathy Cardiovascular: Yes: Regular Rate and Rhythm Respiratory: Yes: Regular Gastrointestinal: Yes: Normal Bowel Sounds, Soft. No: Hepatomegaly, Splenomegaly Breast(s): Yes: Right, Other (lumpectmy) Musculoskeletal: Yes: Back Pain, Muscle Pain, Muscle Weakness. No: Joint Swelling Extremities: No: Calf Tenderness, Cool, Cyanosis Integumentary: Yes: WNL Neurological: Yes: WNL ...Motor Strength: WNL Psychiatric: Yes: WNL Imaging - Results Cat Scan: Pending Assessment/Plan Breast ca - s/p cycle # 3 of adjuvant adriamycin-cytoxan Enters for hydration and neulasta therapy. Fell in bathroom last PM and had trauma to neck . Will require CT of head and neck in view of trauma.
--- NOTE | 2018-08-13 14:20 | PN ---
Progress Note (short form) - Note Progress Note: CT head - no bleed , masses Cervical spine CT - degenerative disease. Plan: Symptomatic therapy.
[2018-08-13 16:16] VITALS: TEMP 98.6
[2018-08-13] MEDS ORDERED: PORTA CATH FLUSH 10 ML IVPUSH ONE (16:16)
[2018-08-13 16:18] VITALS: BP 141/70; PULSE 80
== END 2018-08-13 13:00 | disposition home or self-care (01) ==
LOC: JONCCHEMO 07:07 → J7W 08:36 → JONCCHEMO 13:00
PROVIDERS: ATTEND Internal Medicine Hematology & Oncology
PROC: 3E043GC Introduction of Other Therapeutic Substance into Central Vein, Percutaneous Approach (ICD-10-PCS; principal; 2018-08-13)
PROC: 3E043GC Introduction of Other Therapeutic Substance into Central Vein, Percutaneous Approach (ICD-10-PCS; 2018-08-13)
DX: C50.411 Malignant neoplasm of upper-outer quadrant of right female breast (principal); Z17.0 Estrogen receptor positive status [ER+]; Z76.89 Persons encountering health services in other specified circumstances
CPT/HCPCS: 70450-TC; 72125-TC; 96361; 96365; 96367; 96375; J2405; J2505

== ENCOUNTER 2018-08-14 08:35 | Day surgery (SDC) | payer OTHER ==
[2018-08-14] MEDS ORDERED: DEXAMETHASONE SODIUM PHOSPHATE 8 MG, ONDANSETRON INJECTION 8 MG in SODIUM CHLORIDE 100 ML IVPB ONE (09:00)
[2018-08-14] MEDS ORDERED: MAGNESIUM SULFATE IVPB ONE (09:30)
[2018-08-14] MEDS ORDERED: POTASSIUM CHLORIDE IVPB ONE (09:30)
[2018-08-14] MEDS ORDERED: SODIUM CHLORIDE 0.45% IVPB ONE (09:30)
[2018-08-14 12:47] VITALS: TEMP 98.8
[2018-08-14 12:48] VITALS: BP 114/68; PULSE 98
[2018-08-14] MEDS ORDERED: PORTA CATH FLUSH 10 ML IVPUSH ONE (13:11)
== END 2018-08-14 12:20 | disposition home or self-care (01) ==
LOC: JONCCHEMO 08:35 → J7W 08:40 → JONCCHEMO 12:20
PROVIDERS: ATTEND Internal Medicine Hematology & Oncology
PROC: 3E043GC Introduction of Other Therapeutic Substance into Central Vein, Percutaneous Approach (ICD-10-PCS; principal; 2018-08-14)
PROC: 3E043GC Introduction of Other Therapeutic Substance into Central Vein, Percutaneous Approach (ICD-10-PCS; 2018-08-14)
DX: C50.411 Malignant neoplasm of upper-outer quadrant of right female breast (principal); Z17.0 Estrogen receptor positive status [ER+]; Z76.89 Persons encountering health services in other specified circumstances
CPT/HCPCS: 96361; 96365; 96367; 96375; J2405

== ENCOUNTER 2018-08-26 07:31 | Day surgery (SDC) | payer OTHER ==
[2018-08-26] MEDS ORDERED: SODIUM CHLORIDE 250 ML IV ONE ×2 (08:00→10:00)
[2018-08-26] MEDS ORDERED: [UNRECOGNIZED DRUG - OTHER] IVPB ONE (08:30)
[2018-08-26] MEDS ORDERED: FOSAPREPITANT DIMEGLUMINE 150 MG in SODIUM CHLORIDE 145 ML IVPB ONE (08:30)
[2018-08-26] MEDS ORDERED: DEXAMETHASONE SODIUM PHOSPHATE IVPB ONE (08:30)
[2018-08-26] MEDS ORDERED: PALONOSETRON HCL 0.25 MG/5 ML VIAL IVPUSH ONE (08:30)
[2018-08-26] MEDS ORDERED: RANITIDINE IVPB ONE (08:30)
[2018-08-26] MEDS ORDERED: DOXORUBICIN HCL 104 MG in SODIUM CHLORIDE 100 ML IV ONE (09:00)
[2018-08-26] MEDS ORDERED: CYCLOPHOSPHAMIDE INJECTION 1,040 MG in SODIUM CHLORIDE 250 ML IVPB ONE (09:30)
[2018-08-26 10:21] LABS: HEMATOCRIT 23.5 % (32.4-45.2); MCH 31.1 pg (25.7-33.7); MCHC 33.9 g/dl (32.0-36.0); MEAN CELL VOLUME 91.7 fl (80-96); MEAN PLT VOLUME 8.8 fl (7.5-11.1); PLATELET COUNT 163 K/MM3 (134-434); RBC 2.56 M/mm3 (3.60-5.2); RDW 13.4 % (11.6-15.6); WHITE BLOOD COUNT 4.2 K/mm3 (4.0-10.0)
[2018-08-26 10:47] LABS: ALBUMIN 3.6 g/dl (3.4-5.0); ALK PHOS 85 U/L (45-117); ANION GAP 6 MMOL/L (8-16); BILIRUBIN,DIRECT 0.1 mg/dL (0.0-0.2); BILIRUBIN,TOTAL 0.3 mg/dL (0.2-1); BLOOD UREA NITROGEN 5 mg/dL (7-18); CALCIUM 9.1 mg/dL (8.5-10.1); CHLORIDE 106 mmol/L (98-107); CO2 27 mmol/L (21-32); CREATININE 0.7 mg/dL (0.55-1.3); GLUCOSE,RANDOM 124 mg/dL (74-106); MAGNESIUM 1.6 mg/dL (1.8-2.4); POTASSIUM 3.7 mmol/L (3.5-5.1); SGOT/AST 17 U/L (15-37); SGPT/ALT 22 U/L (13-61); SODIUM 140 mmol/L (136-145); TOT PROT 6.9 g/dl (6.4-8.2)
[2018-08-26] MEDS ORDERED: MAGNESIUM SULF 50% (8.12 MEQ/2 ML-1 GM VIAL) IVPB ONE (11:45)
[2018-08-26 12:06] LABS: ANISOCYTOSIS 0; MACROCYTOSIS 1+
[2018-08-26 12:18] LABS: PLATELET ESTIMATE ADEQUATE
[2018-08-26] MEDS ORDERED: PORTA CATH FLUSH 10 ML IVPUSH ONE (17:47)
[2018-08-26 17:48] VITALS: BP 111/64
[2018-08-26 17:49] VITALS: PULSE 78; TEMP 98.2
== END 2018-08-26 17:05 | disposition home or self-care (01) ==
LOC: JONCCHEMO 07:31 → J7W 11:28 → JONCCHEMO 17:05
PROVIDERS: ATTEND Internal Medicine Hematology & Oncology
DX: Z51.11 Encounter for antineoplastic chemotherapy (principal); C50.411 Malignant neoplasm of upper-outer quadrant of right female breast; Z17.0 Estrogen receptor positive status [ER+]
CPT/HCPCS: 36415; 80048; 80076; 83735; 85027; 96361; 96366; 96367; 96375; 96413; 96417; J1453; J2469; J9070

== ENCOUNTER 2018-08-27 07:05 | Day surgery (SDC) | payer OTHER ==
[2018-08-27] MEDS ORDERED: DEXAMETHASONE INJECTION 8 MG, ONDANSETRON INJECTION 8 MG in SODIUM CHLORIDE 100 ML IVPUSH ONE (09:00)
[2018-08-27] MEDS ORDERED: PEGFILGRASTIM 6 MG/0.6 ML DISP.SYRIN SQ ONE (09:00)
[2018-08-27] MEDS ORDERED: NORMAL SALINE IVPB SCH (10:00)
[2018-08-27] MEDS ORDERED: [UNRECOGNIZED DRUG - OTHER] IVPB SCH (10:00)
[2018-08-27] MEDS ORDERED: DEXTROSE IVPB SCH (10:00)
[2018-08-27] MEDS ORDERED: POTASSIUM CHLORIDE IVPB SCH (10:00)
[2018-08-27] MEDS ORDERED: PORTA CATH FLUSH 10 ML IVPUSH ONE (15:07)
[2018-08-28] MEDS ORDERED: ONDANSETRON 4 MG/2 ML VIAL IVPB ONE (08:23)
[2018-08-28] MEDS ORDERED: [UNRECOGNIZED DRUG - OTHER] IVPB SCH (09:45)
[2018-08-28] MEDS ORDERED: POTASSIUM CHLORIDE IVPB SCH ×2 (09:45→10:02)
[2018-08-28] MEDS ORDERED: DEXTROSE IVPB SCH (09:45)
[2018-08-28] MEDS ORDERED: DEXAMETHASONE INJECTION 8 MG, ONDANSETRON INJECTION 8 MG in SODIUM CHLORIDE 100 ML IVPUSH ONE (09:45)
[2018-08-28] MEDS ORDERED: NORMAL SALINE IVPB SCH (09:45)
[2018-08-28] MEDS ORDERED: MAGNESIUM SO4 IVPB SCH (10:02)
[2018-08-28] MEDS ORDERED: [UNRECOGNIZED DRUG - OTHER] IVPB SCH (10:02)
[2018-08-28] MEDS ORDERED: MULTIVIT IVPB SCH (10:02)
[2018-08-28 10:30] VITALS: BP 118/60; PULSE 82; TEMP 98.3
[2018-08-28 10:41] LABS: BASO % 0.1 % (0-2.0); HEMATOCRIT 29.7 % (32.4-45.2); HEMOGLOBIN 9.8 GM/dL (10.7-15.3); LYMPH % 0.9 % (8-40); MCH 29.2 pg (25.7-33.7); MCHC 32.9 g/dl (32.0-36.0); MEAN CELL VOLUME 88.6 fl (80-96); MEAN PLT VOLUME 8.1 fl (7.5-11.1); MONO % 1.4 % (3.8-10.2); NEUT % 97.6 % (42.8-82.8); PLATELET COUNT 157 K/MM3 (134-434); RBC 3.35 M/mm3 (3.60-5.2); RDW 15.2 % (11.6-15.6)
[2018-08-28 10:53] LABS: WHITE BLOOD COUNT 37.1 K/mm3 (4.0-10.0)
[2018-08-28 11:01] LABS: ALBUMIN 3.1 g/dl (3.4-5.0); ALK PHOS 78 U/L (45-117); ANION GAP 8 MMOL/L (8-16); BILIRUBIN,TOTAL 0.4 mg/dL (0.2-1); BLOOD UREA NITROGEN 12 mg/dL (7-18); CALCIUM 8.1 mg/dL (8.5-10.1); CHLORIDE 111 mmol/L (98-107); CO2 24 mmol/L (21-32); CREATININE 0.8 mg/dL (0.55-1.3); GLUCOSE,RANDOM 88 mg/dL (74-106); POTASSIUM 3.9 mmol/L (3.5-5.1); SGOT/AST 13 U/L (15-37); SGPT/ALT 17 U/L (13-61); SODIUM 143 mmol/L (136-145); TOT PROT 5.8 g/dl (6.4-8.2)
[2018-08-28 15:16] LABS: ANISOCYTOSIS 0; MACROCYTOSIS 1+; OVALOCYTE 1+; TEAR DROP CELLS 1+
[2018-08-28 15:33] LABS: PLATELET ESTIMATE ADEQUATE
== END 2018-08-28 10:30 | disposition home or self-care (01) ==
LOC: JONCNONCHE 07:05 → J7W 09:53 → JONCNONCHE 08-28 10:30
PROVIDERS: ATTEND Internal Medicine Hematology & Oncology
PROC: 3E013GC Introduction of Other Therapeutic Substance into Subcutaneous Tissue, Percutaneous Approach (ICD-10-PCS; principal; 2018-08-27)
PROC: 30243N1 Transfusion of Nonautologous Red Blood Cells into Central Vein, Percutaneous Approach (ICD-10-PCS; 2018-08-27)
DX: C50.411 Malignant neoplasm of upper-outer quadrant of right female breast (principal); Z17.0 Estrogen receptor positive status [ER+]; Z76.89 Persons encountering health services in other specified circumstances
CPT/HCPCS: 36415; 80053; 85025; 87389; 96360; 96361; 96372; 96401; J2505

== ENCOUNTER 2018-08-29 08:56 | Day surgery (SDC) | payer OTHER | END 2018-08-29 13:53 | disposition home or self-care (01) | LOC: JONCNONCHE 08:56 → J7W 08:56 → JONCNONCHE 13:53 ==

== ENCOUNTER 2018-09-16 12:46 | Day surgery (SDC) | payer OTHER | END 2018-09-16 16:05 | disposition home or self-care (01) | LOC: JASU-ENDO 12:46 ==

== ENCOUNTER 2018-09-23 06:20 | Day surgery (SDC) | payer OTHER ==
[2018-09-23] MEDS ORDERED: DEXAMETHASONE SODIUM PHOSPHATE 10 MG, DIPHENHYDRAMINE 50 MG, RANITIDINE INJECTION 50 MG... IVPB ONE (10:00)
[2018-09-23] MEDS ORDERED: ACETAMINOPHEN 325 MG TABLET (FP) PO ONE (10:00)
[2018-09-23 10:16] LABS: EOS % 0.5 % (0-4.5); HEMOGLOBIN 10.5 GM/dL (10.7-15.3); LYMPH % 12.6 % (8-40); MCH 30.8 pg (25.7-33.7); MCHC 33.8 g/dl (32.0-36.0); MEAN CELL VOLUME 91.1 fl (80-96); MEAN PLT VOLUME 7.4 fl (7.5-11.1); MONO % 18.9 % (3.8-10.2); PLATELET COUNT 192 K/MM3 (134-434); RBC 3.41 M/mm3 (3.60-5.2); WHITE BLOOD COUNT 4.5 K/mm3 (4.0-10.0)
[2018-09-23] MEDS ORDERED: SODIUM CHLORIDE IVPB ONE (10:30)
[2018-09-23] MEDS ORDERED: TRASTUZUMAB IVPB ONE (10:30)
[2018-09-23 10:40] LABS: ALBUMIN 3.7 g/dl (3.4-5.0); BILIRUBIN,DIRECT 0.1 mg/dL (0.0-0.2); BILIRUBIN,TOTAL 0.2 mg/dL (0.2-1); CALCIUM 9.3 mg/dL (8.5-10.1); CREATININE 0.7 mg/dL (0.55-1.3); MAGNESIUM 1.7 mg/dL (1.8-2.4); POTASSIUM 4.5 mmol/L (3.5-5.1); TOT PROT 6.9 g/dl (6.4-8.2)
[2018-09-23] MEDS ORDERED: MAGNESIUM OXIDE 400 MG TABLET (FP) PO ONE (10:55)
[2018-09-23] MEDS ORDERED: PACLITAXEL 138 MG in SODIUM CHLORIDE 250 ML IVPB ONE (11:00)
[2018-09-23] MEDS ORDERED: SODIUM CHLORIDE 250 ML IV ONE (12:00)
[2018-09-23] MEDS ORDERED: SODIUM CHLORIDE 125 ML IV ONE ×3 (12:00→14:00)
[2018-09-23] MEDS ORDERED: INSULIN SLIDING SCALE (NOVOLOG) 1 VIAL SQ SCH (12:15)
[2018-09-23] MEDS ORDERED: INSULIN SLIDING SCALE (NOVOLOG) 1 VIAL SQ ONE ×2 (12:15→15:00)
[2018-09-23] MEDS: SODIUM CHLORIDE 250 ML IV ONE ×2 (12:40→17:30)
[2018-09-23] MEDS ORDERED: DEXAMETHASONE SOD PHOSPHATE 10 MG/1 ML VIAL IVPB ONE ×3 (13:00→14:00)
[2018-09-23] MEDS ORDERED: PORTA CATH FLUSH 10 ML IVPUSH ONE (18:26)
[2018-09-23 18:27] VITALS: BP 142/78; PULSE 84
[2018-09-23 18:28] VITALS: TEMP 97.9
== END 2018-09-23 18:00 | disposition home or self-care (01) ==
LOC: JONCCHEMO 06:20 → J7W 11:42 → JONCCHEMO 18:00
PROVIDERS: ATTEND Internal Medicine Hematology & Oncology
DX: Z51.11 Encounter for antineoplastic chemotherapy (principal); C50.411 Malignant neoplasm of upper-outer quadrant of right female breast
CPT/HCPCS: 36415; 80048; 80076; 82962; 83735; 85025; 96361; 96367; 96375; 96413; 96417; J1100; J9355

== ENCOUNTER 2018-10-04 07:19 | Day surgery (SDC) | payer OTHER | END 2018-10-04 16:22 | disposition home or self-care (01) | LOC: JONCCHEMO 07:19 → J7W 11:03 → JONCCHEMO 16:22 ==

== ENCOUNTER 2018-10-11 06:30 | Day surgery (SDC) | payer OTHER ==
[2018-10-11] MEDS ORDERED: SODIUM CHLORIDE 250 ML IV ONE ×2 (09:00→11:30)
[2018-10-11] MEDS ORDERED: ACETAMINOPHEN 325 MG TABLET (FP) PO ONE (09:30)
[2018-10-11] MEDS ORDERED: [UNRECOGNIZED DRUG - OTHER] IVPB ONE (09:30)
[2018-10-11] MEDS ORDERED: DEXAMETHASONE SODIUM PHOSPHATE IVPB ONE (09:30)
[2018-10-11] MEDS ORDERED: DIPHENHYDRAMINE IVPB ONE (09:30)
[2018-10-11] MEDS ORDERED: TRASTUZUMAB IVPB ONE (10:00)
[2018-10-11] MEDS ORDERED: SODIUM CHLORIDE IVPB ONE (10:00)
[2018-10-11] MEDS ORDERED: PACLITAXEL 138 MG in SODIUM CHLORIDE 250 ML IVPB ONE (10:30)
[2018-10-11 11:03] LABS: BASO % 0.4 % (0-2.0); EOS % 2.4 % (0-4.5); HEMATOCRIT 27.5 % (32.4-45.2); HEMOGLOBIN 9.5 GM/dL (10.7-15.3); MCHC 34.5 g/dl (32.0-36.0); MEAN CELL VOLUME 92.6 fl (80-96); MEAN PLT VOLUME 8.1 fl (7.5-11.1); NEUT % 88.2 % (42.8-82.8); PLATELET COUNT 166 K/MM3 (134-434); RBC 2.97 M/mm3 (3.60-5.2); RDW 20.2 % (11.6-15.6); WHITE BLOOD COUNT 4.1 K/mm3 (4.0-10.0)
[2018-10-11 11:19] LABS: ALBUMIN 3.6 g/dl (3.4-5.0); BILIRUBIN,DIRECT 0.1 mg/dL (0.0-0.2); BILIRUBIN,TOTAL 0.4 mg/dL (0.2-1); BLOOD UREA NITROGEN 5.7 mg/dL (7-18); CALCIUM 8.9 mg/dL (8.5-10.1); CREATININE 0.8 mg/dL (0.55-1.3); MAGNESIUM 1.7 mg/dL (1.8-2.4); POTASSIUM 4.6 mmol/L (3.5-5.1); TOT PROT 6.9 g/dl (6.4-8.2)
[2018-10-11] MEDS ORDERED: MAGNESIUM OXIDE 400 MG TABLET (FP) PO ONE (11:45)
[2018-10-11 18:25] VITALS: TEMP 98.4
[2018-10-11 18:32] VITALS: BP 131/75; PULSE 94
[2018-10-11] MEDS ORDERED: PORTA CATH FLUSH 10 ML IVPUSH ONE (18:32)
== END 2018-10-11 18:30 | disposition home or self-care (01) ==
LOC: JONCCHEMO 06:30 → J7W 13:23 → JONCCHEMO 18:30
PROVIDERS: ATTEND Internal Medicine Hematology & Oncology
DX: Z51.11 Encounter for antineoplastic chemotherapy (principal); C50.411 Malignant neoplasm of upper-outer quadrant of right female breast
CPT/HCPCS: 36415; 80048; 80076; 83735; 85025; 96367; 96375; 96413; 96415; 96417; J9355

== ENCOUNTER → 2018-10-18 | Day surgery (SDC) | payer OTHER | LOC: JONCCHEMO 07:11 ==

== ENCOUNTER 2019-03-10 10:07 | Day surgery (SDC) | payer OTHER ==
[2019-03-10 12:24] VITALS: TEMP 98
[2019-03-10 15:10] VITALS: BP 140/74; PULSE 74
== END 2019-03-10 13:10 | disposition home or self-care (01) ==
LOC: JASU-ENDO 10:07
PROVIDERS: ATTEND Internal Medicine Gastroenterology
PROC: 0DJD8ZZ Inspection of Lower Intestinal Tract, Via Natural or Artificial Opening Endoscopic (ICD-10-PCS; principal; 2019-03-10 11:15)
DX: K64.8 Other hemorrhoids (principal); R93.3 Abnormal findings on diagnostic imaging of other parts of digestive tract

== ENCOUNTER → 2019-04-11 | Day surgery (SDC) | payer OTHER ==
--- NOTE | 2019-04-12 15:56 | PATH ---
Surgical Pathology Report Patient Name: SANTIAGO MUNOZ [facility]. Rec. #: [id number] /Age/Gender: 1955 (Age: 64) / F Account: [id number] Location: RADIOLOGY Taken: 04/11/2019 Received: 04/11/2019 Reported: 04/12/2019 Physicians: Michelle Juarez M.D. Specimen(s) Received LEFT AXILLA LYMPH NODE BX Clinical History Nonpalpable lesion Ultrasound findings: Probably benign, suspicious H/o right breast malignancy Final Diagnosis LYMPH NODE, LEFT AXILLA, CORE BIOPSY: BENIGN LYMPH NODE TISSUE. (SEE NOTE). Note: Cytokeratin (AE1/3) immunostain (performed at [facility]) is negative. This finding supports the diagnosis. Electronically Signed Twila Trammell M.D. Gross Description Received in formalin labeled "left axilla," are 5 fragments of fibroadipose tissue ranging from 0.3-0.6 cm in length and averaging 0.1 cm in diameter. The specimens are submitted in toto in one cassette. Time to formalin fixation: < 1 minute Total formalin fixation time: Approximately 6 hours. /04/11/2019 [place]04/11/2019
== END | disposition home or self-care (01) ==
LOC: JMAMMO-SUR 11:46
PROVIDERS: ATTEND Student in an Organized Health Care Education/Training Program
PROC: 07B63ZX Excision of Left Axillary Lymphatic, Percutaneous Approach, Diagnostic (ICD-10-PCS; principal; 2019-04-11)
PROC: BH41ZZZ Ultrasonography of Left Breast (ICD-10-PCS; 2019-04-11)
DX: R59.9 Enlarged lymph nodes, unspecified (principal)
CPT/HCPCS: 19083; 38505; 76942; 87899; 88305-TC; 88342-TC; A4648

== ENCOUNTER 2021-05-21 04:53 | Day surgery (SDC) | payer BC ==
[2021-05-20 15:09] VITALS: BMI 30.2
[2021-05-21 10:34] VITALS: TEMP 97.7
[2021-05-21 11:10] VITALS: BP 108/65; PULSE 72
== END 2021-05-21 11:28 | disposition home or self-care (01) ==
LOC: JASU-ENDO 04:53
PROVIDERS: ATTEND Internal Medicine Gastroenterology
PROC: 0DB68ZX Excision of Stomach, Via Natural or Artificial Opening Endoscopic, Diagnostic (ICD-10-PCS; principal; 2021-05-21 11:00)
DX: K31.7 Polyp of stomach and duodenum (principal); K44.9 Diaphragmatic hernia without obstruction or gangrene; K29.50 Unspecified chronic gastritis without bleeding; E11.9 Type 2 diabetes mellitus without complications
CPT/HCPCS: 82962; 88305-TC; 88342-TC

== ENCOUNTER 2021-06-12 04:24 | Day surgery (SDC) | payer BC ==
[2021-06-10 15:31] VITALS: BMI 28.9
[2021-06-12] MEDS ORDERED: ROPIVACAINE HCL 0.5% 30ML VIAL ONE (08:15)
[2021-06-12] MEDS ORDERED: MIDAZOLAM HCL 2 MG/2 ML SINGLE DOSE VIAL ONE ×2 (08:18→08:19)
[2021-06-12] MEDS ORDERED: PROPOFOL 20 ML ONE (09:23)
[2021-06-12] MEDS ORDERED: ceFAZolin SODIUM 1 GM VIAL IVPB ONE (10:25)
[2021-06-12] MEDS ORDERED: ONDANSETRON 4 MG/2 ML VIAL ONE ×2 (12:06→14:24)
[2021-06-12] MEDS ORDERED: LIDOCAINE HCL/PF 2% SDV 5ML VIAL ONE (12:06)
[2021-06-12] MEDS ORDERED: KETOROLAC TROMETHAMINE 30 MG/1 ML VIAL ONE ×2 (12:06→14:24)
[2021-06-12] MEDS ORDERED: DEXAMETHASONE SOD PHOSPHATE 4 MG/1 ML VIAL ONE ×2 (12:06→14:24)
[2021-06-12] MEDS ORDERED: ceFAZolin SODIUM 1 GM VIAL ONE ×2 (12:06→14:24)
[2021-06-12] MEDS ORDERED: oxyCODONE HCL 5 MG TABLET PO PRN ×2 (12:56)
[2021-06-12] MEDS ORDERED: ONDANSETRON 4 MG/2 ML VIAL IVPUSH PRN (12:56)
[2021-06-12] MEDS ORDERED: ACETAMINOPHEN 325 MG TABLET (FP) PO PRN (12:56)
[2021-06-12] MEDS ORDERED: LACTATED RINGERS SOLUTION 1,000 ML IV SCH (13:00)
[2021-06-12] MEDS ORDERED: PROMETHAZINE HCL 25 MG/1 ML VIAL ONE (13:11)
[2021-06-12] MEDS ORDERED: PROMETHAZINE HCL 25 MG/1 ML VIAL IVPB ONE (13:15)
[2021-06-12] MEDS ORDERED: PROMETHAZINE HCL 25 MG/1 ML VIAL IVPUSH PRN (13:17)
[2021-06-12 17:15] VITALS: BP 111/61; PULSE 65; TEMP 98.2
== END 2021-06-12 18:05 | disposition home or self-care (01) ==
LOC: JASU-SURG 04:24
PROVIDERS: ATTEND Orthopaedic Surgery
PROC: 0PB94ZZ Excision of Right Clavicle, Percutaneous Endoscopic Approach (ICD-10-PCS; 2021-06-12)
PROC: 0LS34ZZ Reposition Right Upper Arm Tendon, Percutaneous Endoscopic Approach (ICD-10-PCS; 2021-06-12)
PROC: 0RNJ4ZZ Release Right Shoulder Joint, Percutaneous Endoscopic Approach (ICD-10-PCS; principal; 2021-06-12 10:00)
PROC: 0LQ14ZZ Repair Right Shoulder Tendon, Percutaneous Endoscopic Approach (ICD-10-PCS; 2021-06-12 10:00)
DX: M75.41 Impingement syndrome of right shoulder (principal); M19.011 Primary osteoarthritis, right shoulder; M75.101 Unspecified rotator cuff tear or rupture of right shoulder, not specified as traumatic; S46.211A Strain of muscle, fascia and tendon of other parts of biceps, right arm, initial encounter; X58.XXXA Exposure to other specified factors, initial encounter; Y93.9 Activity, unspecified; Y92.9 Unspecified place or not applicable; Y99.9 Unspecified external cause status
CPT/HCPCS: 82962; 94760